=== PATIENT | male | born 1985 | race Caucasian/White ===

== ENCOUNTER 2023-12-07 16:45 | Emergency (ER) | payer SELFPAY ==
[~2023-12-07] VITALS: Ht 170.2 cm; Wt 95.0 kg
[2023-12-07 16:52] VITALS: BP 158/76; TEMP 97.7; O2SAT 99
[2023-12-07 17:00] VITALS: PULSE 127; RESP 17; O2SAT 100
[2023-12-07] MEDS ORDERED: CLIN-194 MT (18:58)
[2023-12-07] MEDS ORDERED: IBUP-2030 MT (18:58)
[2023-12-07] MEDS: CEFTRIAXONE SODIUM 1G VIAL IM ONE (20:05)
== END 2023-12-07 20:01 | disposition home or self-care (01) ==
LOC: ER 16:45
DX: L02.211 Cutaneous abscess of abdominal wall (principal)
CPT/HCPCS: 99283; 96372; J0696